=== PATIENT | male | born 1980 | race Caucasian/White ===

== ENCOUNTER 2020-03-14 03:53 | Emergency (ER) | payer BC ==
[~2020-03-14] VITALS: Wt 83.9 kg
[2020-03-14] MEDS ORDERED: NORCO 5-325 TA1 EACH PO ×2 (04:30→05:41)
[2020-03-14] MEDS ORDERED: CLINDAMYCIN HC300 MG PO ×2 (04:30→05:41)
[2020-03-14] MEDS ORDERED: Motrin,Rufen800 MG PO (05:39)
== END 2020-03-14 05:08 | disposition home or self-care (01) ==
LOC: ED 03:53
DX: K04.01 Reversible pulpitis (principal); K08.89 Other specified disorders of teeth and supporting structures